=== PATIENT | male | born 1965 | race Caucasian/White ===

== ENCOUNTER → 2017-06-01 | Outpatient (CLI) | payer OTHER ==
--- NOTE | 2017-06-01 13:20 | DIAGNOSTIC IMAGING REPORT ---
SINUSES WITH BRAIN LAB CLINICAL HISTORY: 51 years-old Male presenting with CHRONIC SINUSITIS, nasal septal deviation, no history of surgery. TECHNIQUE: Multidetector CT of the sinuses was performed without the use of intravenous contrast. IV contrast: None. A dose lowering technique was used consistent with the principles of ALARA (as low as reasonably achievable). COMPARISON: MR brain from 2016. CT DOSE (mGy.cm): The estimated cumulative dose is 269.19 mGycm. FINDINGS: Digital Technician topogram: Unremarkable. Mild polypoid mucosal thickening in the maxillary sinuses. No sclerosis of the sinus beltran to suggest chronic sinusitis. No osseous erosion. Nasal frontoethmoidal recesses and ostiomeatal units patent. Trace leftward deviation of the bony nasal septum with bony spurring. No bony bridging. No significant anatomic variant. No osseous dehiscence of the carotid siphons or bony optic canals. Orbits normal. Limited intracranial evaluation within normal limits. Superficial soft tissues of the face within normal limits. IMPRESSION: 1. No current evidence of acute or chronic sinusitis. 2. No significant anatomic variant. Electronically signed by: David Whittaker M.D. 06/01/2017 1:19 PM Dictated Date/Time: 06/01/2017 1:15 PM
== END | disposition home or self-care (01) ==
LOC: C.CTS 12:53
PROVIDERS: ATTEND Otolaryngology
DX: J34.2 Deviated nasal septum (principal); J32.9 Chronic sinusitis, unspecified